=== PATIENT | female | born 2000 | race Caucasian/White ===

== ENCOUNTER 2024-10-23 16:56 | Emergency (ER) | payer OTHER, SELFPAY ==
[2024-10-23 17:10] VITALS: BP 133/92; PULSE 93; RESP 16; TEMP 36.8; O2SAT 99
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
[2024-10-23] MEDS: TETANUS,DIPHTHERIA,AC PERTUSSIS ADULT (0.5 ML) BOOSTRIX IM (17:39)
== END 2024-10-23 18:07 | disposition home or self-care (01) ==
PROVIDERS: Emergency Provider Registered Nurse
DX: S61.431A Puncture wound without foreign body of right hand, initial encounter (principal); S60.511A Abrasion of right hand, initial encounter; W50.3XXA Accidental bite by another person, initial encounter; Y99.0 Civilian activity done for income or pay; Z23 Encounter for immunization
CPT/HCPCS: 90471; 90715; 99213; G0463